=== PATIENT | female | born 1950 | race African-American/Black ===

== ENCOUNTER 2016-11-15 16:44 | Emergency (ER) | payer OTHER, MEDICAID ==
[~2016-11-15] VITALS: Ht 160 cm; Wt 96.6 kg
[~2016-11-15 16:44] MED LIST: ASPIR 8181 MG PO; ATENOLOL50 MG PO; COLACE100 MG PO; COR3 PO; COZAAR50 MG PO; CYCLOBENZAPRINE5 MG PO; ECO81 PO; ELA25 PO; ERY250 PO; FLUOXETINE HCL20 MG PO; FUROSEMIDE40 MG PO; GABAPENTIN TAB600 M1 PO; GAS-X80 MG PO; HYD25 PO; HYDROXYZINE HYD25 MG PO; L40I IV; L40I PO; LANTUS SOLOS100 U/M1; LANTUS SOLOS100 U/M1 SQ; LASIX20 MG PO; LEVEMIR100 U/M1 SQ; LEVOTHYROXINE0.1 M2 PO; METOCLOPRAMIDE10 MG PO; MIRALAX17 GM/Dose PO; NATURAL IRON65 MG PO; NEU100 PO; NEURONTIN600 MG PO; NOR5 PO; OMEPRAZOLE40 M1 PO; POTASSIUM CHLO10 MEQ PO; PRI20 PO; PRILOSEC20 MG PO; ROBDML PO; SIMVASTATIN40 M1 PO; THERAGRAN-M1 TA4 PO; TOR10 PO; TRAMADOL HCL50 MG PO; ULT50 PO; ZOF4 PO
[2016-11-15 19:05] LABS: BASOPHIL % 0.4 % (0-2); PLATELET COUNT 271 x10^3mcL (130-400); RED CELL DISTRIBUTION WIDTH 14.1 % (11.5-14.5)
[2016-11-15 19:23] LABS: CALCIUM 9.3 mg/dL (8.5-10.1); CARBON DIOXIDE 29.8 mmol/L (21-32); CREATININE SERUM 1.6 mg/dL (0.6-1.0); POTASSIUM SERUM 4.3 mmol/L (3.5-5.1)
[2016-11-15 19:35] LABS: ALBUMIN 3.4 g/dL (3.4-5.0); BILIRUBIN TOTAL 0.4 mg/dL (0.20-1.00); T4(THYROXINE) 7.8 ug/dL (4.7-13.3); TOTAL PROTEIN, SERUM 7.6 g/dL (6.4-8.2)
[2016-11-15 19:46] LABS: microscopic required? NO
[2016-11-15 19:59] LABS: UA SPECIFIC GRAVITY <=1.005 (1.005-1.035); urine erythrocyte NEGATIVE (NEGATIVE)
[2016-11-15 20:37] VITALS: BP 104/53
== END 2016-11-15 20:37 | disposition home or self-care (01) ==
LOC: ED 16:44
PROVIDERS: Emergency Medicine
DX: N39.0 Urinary tract infection, site not specified (principal); E11.22 Type 2 diabetes mellitus with diabetic chronic kidney disease; I12.9 Hypertensive chronic kidney disease with stage 1 through stage 4 chronic kidney disease, or unspecified chronic kidney disease; N18.3 Chronic kidney disease, stage 3 (moderate); E78.5 Hyperlipidemia, unspecified; E78.00 Pure hypercholesterolemia, unspecified; I44.0 Atrioventricular block, first degree; K21.9 Gastro-esophageal reflux disease without esophagitis; F17.200 Nicotine dependence, unspecified, uncomplicated; Q80.9 Congenital ichthyosis, unspecified; Z88.5 Allergy status to narcotic agent; Z71.6 Tobacco abuse counseling
CPT/HCPCS: 83880; 99406

== ENCOUNTER 2016-12-23 14:13 | Emergency (ER) | payer OTHER, MEDICAID ==
[2016-12-23 14:46] LABS: BILIRUBIN TOTAL 0.3 mg/dL (0.20-1.00); CARBON DIOXIDE 25.3 mmol/L (21-32); CREATININE SERUM 1.7 mg/dL (0.6-1.0); POTASSIUM SERUM 3.9 mmol/L (3.5-5.1); TOTAL PROTEIN, SERUM 7.6 g/dL (6.4-8.2)
[2016-12-23 14:47] LABS: ALBUMIN 3.2 g/dL (3.4-5.0)
[2016-12-23 14:50] LABS: CALCIUM 9.2 mg/dL (8.5-10.1)
[2016-12-23] MEDS ORDERED: COZAAR50 M1 PO (14:54)
[2016-12-23] MEDS ORDERED: PRAVASTATIN SOD40 M1 PO (14:55)
[2016-12-23] MEDS ORDERED: ASPIR 8181 MG PO (14:55)
[2016-12-23] MEDS ORDERED: GABAPENTIN100 M2 PO (14:57)
[2016-12-23] MEDS ORDERED: NOR5 PO (14:57)
[2016-12-23] MEDS ORDERED: CIPRO500 MG PO (14:57)
[2016-12-23] MEDS ORDERED: SYNTHROID0.112 MG PO (14:58)
[2016-12-23] MEDS ORDERED: ESCITALOPRAM10 M1 PO (15:00)
[2016-12-23 15:46] LABS: BASOPHIL % 0.3 % (0-2); PLATELET COUNT 309 x10^3mcL (130-400)
[2016-12-23 15:57] VITALS: BP 129/665
== END 2016-12-23 15:57 | disposition home or self-care (01) ==
LOC: ED 14:13
PROVIDERS: Emergency Medicine
DX: R10.13 Epigastric pain (principal); R11.2 Nausea with vomiting, unspecified; E03.9 Hypothyroidism, unspecified; I10 Essential (primary) hypertension; E11.9 Type 2 diabetes mellitus without complications; E78.5 Hyperlipidemia, unspecified; G47.00 Insomnia, unspecified; F32.9 Major depressive disorder, single episode, unspecified; E66.01 Morbid (severe) obesity due to excess calories; I73.9 Peripheral vascular disease, unspecified; E11.43 Type 2 diabetes mellitus with diabetic autonomic (poly)neuropathy; K31.84 Gastroparesis; Z88.5 Allergy status to narcotic agent
CPT/HCPCS: 82962; 83880; J1815; J2405; J3490; J7030

== ENCOUNTER 2017-02-09 16:56 | Inpatient (IN) | payer OTHER, MEDICAID ==
[~2017-02-09] VITALS: Ht 154.9 cm; Wt 105.8 kg
[~2017-02-09 16:56] MED LIST changes: +CIPRO500 MG PO; +COZAAR50 M1 PO; +ESCITALOPRAM10 M1 PO; +GABAPENTIN100 M2 PO; +PRAVASTATIN SOD40 M1 PO; +SYNTHROID0.112 MG PO
[2017-02-09 19:48] LABS: BASOPHIL % 0.4 % (0-2); PLATELET COUNT 265 x10^3mcL (130-400); RED CELL DISTRIBUTION WIDTH 12.1 % (11.5-14.5)
[2017-02-09 19:54] LABS: CALCIUM 9.2 mg/dL (8.5-10.1); CARBON DIOXIDE 28.3 mmol/L (21-32); CREATININE SERUM 1.7 mg/dL (0.6-1.0)
[2017-02-09 19:59] LABS: BILIRUBIN TOTAL 0.36 mg/dL (0.20-1.00); TOTAL PROTEIN, SERUM 7.8 g/dL (6.4-8.2)
[2017-02-09 20:00] LABS: ALBUMIN 3.2 g/dL (3.4-5.0)
[2017-02-09 20:26] LABS: microscopic required? NO
[2017-02-09 20:34] LABS: UA SPECIFIC GRAVITY <=1.005 (1.005-1.035); urine erythrocyte NEGATIVE (NEGATIVE)
[2017-02-09 20:42] LABS: AMPHETAMINE QUAL UR NONE DETECTED (NEG <=1000)
[2017-02-09 20:55] LABS: CHOLESTEROL/HDL RATIO 4.2; MAGNESIUM 1.8 mg/dL (1.8-2.4); PHOSPHOROUS 2.9 mg/dL (2.5-4.9)
[2017-02-09 21:03] LABS: FREE THYROXINE INDEX 2.2 ug/dL (1.4-4.5); T3 TOTAL 0.52 ng/mL; T4(THYROXINE) 6.4 ug/dL (4.7-13.3)
[2017-02-09 21:10] VITALS: BP 125/65
[2017-02-10 05:55] VITALS: BP 147/72
[2017-02-10 06:47] LABS: BASOPHIL % 0.5 % (0-2); PLATELET COUNT 235 x10^3mcL (130-400); RED CELL DISTRIBUTION WIDTH 12.2 % (11.5-14.5)
[2017-02-10 07:02] LABS: CALCIUM 8.2 mg/dL (8.5-10.1); CARBON DIOXIDE 26.3 mmol/L (21-32); CREATININE SERUM 1.7 mg/dL (0.6-1.0); POTASSIUM SERUM 3.5 mmol/L (3.5-5.1)
[2017-02-10 09:34] VITALS: BP 106/52
[2017-02-10 13:22] VITALS: BP 116/63
[2017-02-10 14:13] VITALS: Ht 154.9 cm; Wt 105.8 kg
[2017-02-10 17:25] VITALS: BP 115/68
[2017-02-10 21:33] VITALS: BP 122/80
[2017-02-11 06:39] LABS: CALCIUM 8.4 mg/dL (8.5-10.1); CREATININE SERUM 1.3 mg/dL (0.6-1.0); MAGNESIUM 1.9 mg/dL (1.8-2.4); PHOSPHOROUS 3.1 mg/dL (2.5-4.9); POTASSIUM SERUM 3.7 mmol/L (3.5-5.1)
[2017-02-11 06:48] LABS: BASOPHIL % 0.3 % (0-2); PLATELET COUNT 241 x10^3mcL (130-400); RED CELL DISTRIBUTION WIDTH 12.5 % (11.5-14.5)
[2017-02-11 06:58] VITALS: BP 114/57
[2017-02-11 09:31] VITALS: BP 136/69
[2017-02-11] MEDS ORDERED: COL100 PO (10:23)
[2017-02-11] MEDS ORDERED: TOR10 PO (10:24)
[2017-02-11 12:22] VITALS: BP 136/69
== END 2017-02-11 13:00 | disposition home or self-care (01) | DRG 542 ==
LOC: ED 16:56 → DU 20:04
PROVIDERS: Emergency Medicine; ADMIT Family Medicine
DX: M48.56XA Collapsed vertebra, not elsewhere classified, lumbar region, initial encounter for fracture (principal); N17.0 Acute kidney failure with tubular necrosis; E44.1 Mild protein-calorie malnutrition; Z68.41 Body mass index [BMI] 40.0-44.9, adult; M48.06 Spinal stenosis, lumbar region; I25.10 Atherosclerotic heart disease of native coronary artery without angina pectoris; M25.812 Other specified joint disorders, left shoulder; M25.811 Other specified joint disorders, right shoulder; E11.65 Type 2 diabetes mellitus with hyperglycemia; E11.51 Type 2 diabetes mellitus with diabetic peripheral angiopathy without gangrene; E03.9 Hypothyroidism, unspecified; N87.1 Moderate cervical dysplasia; E66.01 Morbid (severe) obesity due to excess calories; F17.200 Nicotine dependence, unspecified, uncomplicated; Z79.4 Long term (current) use of insulin
CPT/HCPCS: 82962; 83880; 84439; J1815; J1885; J2270; J2405; J3010; J7030

== ENCOUNTER 2017-04-29 12:22 | Emergency (ER) | payer OTHER, MEDICAID ==
[~2017-04-29] VITALS: Ht 160 cm; Wt 99.8 kg
[~2017-04-29 12:22] MED LIST changes: +COL100 PO
[2017-04-29 17:53] VITALS: BP 109/68
== END 2017-04-29 17:40 | disposition home or self-care (01) ==
LOC: ED 12:22
DX: R11.2 Nausea with vomiting, unspecified (principal); R10.13 Epigastric pain; K21.9 Gastro-esophageal reflux disease without esophagitis; E11.43 Type 2 diabetes mellitus with diabetic autonomic (poly)neuropathy; K31.84 Gastroparesis; E11.51 Type 2 diabetes mellitus with diabetic peripheral angiopathy without gangrene; E11.40 Type 2 diabetes mellitus with diabetic neuropathy, unspecified; I10 Essential (primary) hypertension; E03.9 Hypothyroidism, unspecified; E66.9 Obesity, unspecified; Z90.710 Acquired absence of both cervix and uterus; Z88.6 Allergy status to analgesic agent
CPT/HCPCS: J1885; J2270; Q0162

== ENCOUNTER 2017-08-02 19:04 | Emergency (ER) | payer OTHER, MEDICAID ==
[~2017-08-02] VITALS: Ht 162.6 cm; Wt 96.2 kg
[2017-08-02 19:41] VITALS: Ht 162.6 cm; Wt 96.2 kg
[2017-08-02 22:53] LABS: BASOPHIL % 0.5 % (0-2); PLATELET COUNT 320 x10^3mcL (130-400); RED CELL DISTRIBUTION WIDTH 12.6 % (11.5-14.5)
[2017-08-02 23:09] LABS: CALCIUM 9.9 mg/dL (8.5-10.1); CARBON DIOXIDE 28.4 mmol/L (21-32); CREATININE SERUM 1.7 mg/dL (0.6-1.0); POTASSIUM SERUM 3.6 mmol/L (3.5-5.1)
[2017-08-02 23:13] LABS: ALBUMIN 3.4 g/dL (3.4-5.0); BILIRUBIN TOTAL 0.35 mg/dL (0.20-1.00); TOTAL PROTEIN, SERUM 8.1 g/dL (6.4-8.2)
[2017-08-03 01:57] VITALS: BP 123/74
== END 2017-08-03 01:57 | disposition home or self-care (01) ==
LOC: ED 19:04
PROVIDERS: Specialist
DX: R11.10 Vomiting, unspecified (principal); R19.7 Diarrhea, unspecified; M79.1 Myalgia; I10 Essential (primary) hypertension; E11.9 Type 2 diabetes mellitus without complications; E78.00 Pure hypercholesterolemia, unspecified; M19.90 Unspecified osteoarthritis, unspecified site; Z88.5 Allergy status to narcotic agent
CPT/HCPCS: 87804; J1170; J1885; J2405; J3010; J7030

== ENCOUNTER 2018-01-02 10:28 | Inpatient (IN) | payer OTHER, MEDICAID ==
[~2018-01-02] VITALS: Ht 154.9 cm; Wt 100.9 kg
[2018-01-02 11:28] LABS: PLATELET COUNT 314 x10^3mcL (130-400); RED CELL DISTRIBUTION WIDTH 12.1 % (11.5-14.5)
[2018-01-02 11:36] LABS: CALCIUM 8.9 mg/dL (8.5-10.1); CARBON DIOXIDE 26.8 mmol/L (21-32); CREATININE SERUM 2.5 mg/dL (0.6-1.0); POTASSIUM SERUM 3.8 mmol/L (3.5-5.1)
[2018-01-02 11:47] LABS: BILIRUBIN TOTAL 0.5 mg/dL (0.20-1.00); TOTAL PROTEIN, SERUM 7.8 g/dL (6.4-8.2)
[2018-01-02 11:51] LABS: FREE T4 0.73 ng/dL (0.76-1.46)
[2018-01-02 11:53] LABS: CK-MB 0.8 ng/mL (0-3.6)
[2018-01-02 11:59] LABS: ALBUMIN 2.6 g/dL (3.4-5.0); FREE THYROXINE INDEX 1.4 ug/dL (1.4-4.5); T3 TOTAL 0.28 ng/mL; T4(THYROXINE) 4.3 ug/dL (4.7-13.3)
[2018-01-02 13:10] LABS: BAND NEUTROPHIL 1 % (0-10); MONOCYTE 3 % (0-7); SEGMENTED NEUTROPHILS 88 % (37-75)
[2018-01-02 13:11] LABS: BASOPHIL 0 % (0-2); rbc morphology (normal/abnorm) ABNORMAL (NORMAL)
[2018-01-02 13:12] VITALS: BP 112/56
[2018-01-02 13:20] LABS: C REACTIVE PROTEIN 32.1 mg/dL (<=0.9); ERYTHROCYTE SED RATE 101 mm/hr (0-30)
[2018-01-02 13:42] LABS: MAGNESIUM 2.2 mg/dL (1.8-2.4); PHOSPHOROUS 3.3 mg/dL (2.5-4.9)
[2018-01-02 13:51] LABS: CHOLESTEROL/HDL RATIO 5.7
[2018-01-02] MEDS ORDERED: LEVEMIR100 U/M1 SC (14:56)
[2018-01-02 15:15] VITALS: BP 92/48
[2018-01-02 20:01] VITALS: BP 119/60
[2018-01-02 20:06] LABS: microscopic required? NO
[2018-01-02 20:09] LABS: urine erythrocyte NEGATIVE (NEGATIVE)
[2018-01-03 05:29] VITALS: BP 107/63
[2018-01-03 06:25] LABS: RED CELL DISTRIBUTION WIDTH 12.2 % (11.5-14.5)
[2018-01-03 06:30] LABS: CARBON DIOXIDE 23.1 mmol/L (21-32); CREATININE SERUM 2.9 mg/dL (0.6-1.0); POTASSIUM SERUM 3.9 mmol/L (3.5-5.1)
[2018-01-03 06:31] LABS: PLATELET COUNT 272 x10^3mcL (130-400)
[2018-01-03 08:35] VITALS: BP 99/43
[2018-01-03 12:12] LABS: BAND NEUTROPHIL 8 % (0-10); MONOCYTE 9 % (0-7); SEGMENTED NEUTROPHILS 75 % (37-75)
[2018-01-03 12:13] LABS: PLATELET MORPHOLOGY PLATELETS NORMAL; rbc morphology (normal/abnorm) ABNORMAL (NORMAL)
[2018-01-03 14:44] VITALS: BP 90/50
[2018-01-03] MEDS ORDERED: NATURAL IRON65 MG PO (16:19)
[2018-01-03] MEDS ORDERED: MAGOX 400241.3 MG PO (16:20)
[2018-01-03] MEDS ORDERED: ALERCAP25 MG PO (16:21)
[2018-01-03] MEDS ORDERED: HYDROCHLOROTHIA25 MG PO (16:23)
[2018-01-03] MEDS ORDERED: PROCTOSOL-HC2.5% (16:25)
[2018-01-03] MEDS ORDERED: LAXATIVE MAXIMU25 MG PO (16:26)
[2018-01-03] MEDS ORDERED: NEURONTIN800 MG PO (16:27)
[2018-01-03] MEDS ORDERED: LASIX20 MG PO (16:29)
[2018-01-03 16:40] VITALS: BP 100/48
[2018-01-03 19:03] VITALS: BP 92/51
[2018-01-03 20:52] VITALS: BP 114/54
[2018-01-04 06:05] VITALS: BP 123/68
[2018-01-04 09:05] VITALS: BP 102/6; BP 102/60
[2018-01-04 09:27] LABS: PLATELET COUNT 295 x10^3mcL (130-400); RED CELL DISTRIBUTION WIDTH 12.3 % (11.5-14.5)
[2018-01-04 10:23] LABS: BAND NEUTROPHIL 11 % (0-10); BASOPHIL 0 % (0-2); MONOCYTE 7 % (0-7); SEGMENTED NEUTROPHILS 73 % (37-75)
[2018-01-04 10:25] LABS: rbc morphology (normal/abnorm) ABNORMAL (NORMAL)
[2018-01-04 10:42] LABS: CALCIUM 8.1 mg/dL (8.5-10.1); CARBON DIOXIDE 20.8 mmol/L (21-32); CREATININE SERUM 2.1 mg/dL (0.6-1.0); MAGNESIUM 2.1 mg/dL (1.8-2.4); PHOSPHOROUS 3.4 mg/dL (2.5-4.9); POTASSIUM SERUM 3.9 mmol/L (3.5-5.1)
[2018-01-04 13:35] VITALS: BP 98/51
[2018-01-04 16:40] VITALS: BP 118/60
[2018-01-04 21:59] VITALS: BP 109/54
[2018-01-05 05:54] VITALS: BP 113/51
[2018-01-05 06:01] LABS: BASOPHIL % 0.1 % (0-2); PLATELET COUNT 317 x10^3mcL (130-400); RED CELL DISTRIBUTION WIDTH 12.4 % (11.5-14.5)
[2018-01-05 06:16] LABS: CALCIUM 8.5 mg/dL (8.5-10.1); CARBON DIOXIDE 24.2 mmol/L (21-32); CREATININE SERUM 1.6 mg/dL (0.6-1.0); MAGNESIUM 2.1 mg/dL (1.8-2.4); PHOSPHOROUS 2.8 mg/dL (2.5-4.9); POTASSIUM SERUM 3.8 mmol/L (3.5-5.1)
[2018-01-05 12:45] VITALS: BP 132/59
[2018-01-05 16:36] LABS: IRON 30 ug/dL (50-170); TOTAL IRON BINDING CAPACITY 137 ug/dL (250-450)
[2018-01-05 21:04] VITALS: BP 151/68
[2018-01-06 05:17] VITALS: BP 142/61
[2018-01-06 06:29] LABS: BASOPHIL % 0.2 % (0-2); PLATELET COUNT 362 x10^3mcL (130-400); RED CELL DISTRIBUTION WIDTH 12.4 % (11.5-14.5)
[2018-01-06 07:07] LABS: CALCIUM 8.8 mg/dL (8.5-10.1); CARBON DIOXIDE 24.6 mmol/L (21-32); CREATININE SERUM 1.3 mg/dL (0.6-1.0); MAGNESIUM 1.8 mg/dL (1.8-2.4); PHOSPHOROUS 3.2 mg/dL (2.5-4.9); POTASSIUM SERUM 4.2 mmol/L (3.5-5.1)
[2018-01-06 09:29] VITALS: BP 126/62
[2018-01-06 13:49] VITALS: BP 155/69
[2018-01-06 21:19] VITALS: BP 150/69
[2018-01-07 05:53] VITALS: BP 146/64
[2018-01-07 06:09] LABS: BASOPHIL % 0.2 % (0-2); PLATELET COUNT 395 x10^3mcL (130-400); RED CELL DISTRIBUTION WIDTH 12.1 % (11.5-14.5)
[2018-01-07 06:25] LABS: CALCIUM 9.1 mg/dL (8.5-10.1); CARBON DIOXIDE 25.2 mmol/L (21-32); CREATININE SERUM 1.2 mg/dL (0.6-1.0); MAGNESIUM 1.8 mg/dL (1.8-2.4); PHOSPHOROUS 3.6 mg/dL (2.5-4.9); POTASSIUM SERUM 3.9 mmol/L (3.5-5.1)
[2018-01-07 09:23] VITALS: BP 144/51
[2018-01-07 14:04] VITALS: BP 149/66
[2018-01-07 16:35] VITALS: BP 145/53
[2018-01-07 21:45] VITALS: BP 131/69
[2018-01-08 06:23] VITALS: BP 122/68
[2018-01-08 07:45] LABS: BASOPHIL % 0.1 % (0-2); RED CELL DISTRIBUTION WIDTH 12.3 % (11.5-14.5)
[2018-01-08 07:46] LABS: PLATELET COUNT 401 x10^3mcL (130-400)
[2018-01-08 08:02] LABS: CALCIUM 8.8 mg/dL (8.5-10.1); CARBON DIOXIDE 27.6 mmol/L (21-32); CREATININE SERUM 1.2 mg/dL (0.6-1.0); POTASSIUM SERUM 3.9 mmol/L (3.5-5.1)
[2018-01-08 08:07] LABS: ALBUMIN 2.3 g/dL (3.4-5.0); BILIRUBIN TOTAL 0.21 mg/dL (0.20-1.00); TOTAL PROTEIN, SERUM 6.5 g/dL (6.4-8.2)
[2018-01-08 10:20] VITALS: BP 128/79
[2018-01-08 13:02] VITALS: BP 105/47
[2018-01-08 17:55] VITALS: BP 104/59
[2018-01-08 22:10] VITALS: BP 119/51
[2018-01-09 06:04] VITALS: BP 128/60
[2018-01-09 07:00] LABS: CALCIUM 8.9 mg/dL (8.5-10.1); CARBON DIOXIDE 25.4 mmol/L (21-32); CREATININE SERUM 1.6 mg/dL (0.6-1.0); MAGNESIUM 1.8 mg/dL (1.8-2.4); POTASSIUM SERUM 4.3 mmol/L (3.5-5.1)
[2018-01-09 07:13] LABS: BASOPHIL % 0.5 % (0-2); RED CELL DISTRIBUTION WIDTH 12.4 % (11.5-14.5)
[2018-01-09 07:36] LABS: PLATELET COUNT 414 x10^3mcL (130-400)
[2018-01-09 09:05] VITALS: BP 124/56
[2018-01-09 12:28] VITALS: BP 106/43
[2018-01-09 16:57] VITALS: BP 104/45
[2018-01-09 21:06] VITALS: BP 125/78
[2018-01-10 05:40] VITALS: BP 118/63
[2018-01-10 06:50] LABS: BASOPHIL % 0.3 % (0-2); PLATELET COUNT 382 x10^3mcL (130-400); RED CELL DISTRIBUTION WIDTH 12.7 % (11.5-14.5)
[2018-01-10 07:07] LABS: CALCIUM 8.7 mg/dL (8.5-10.1); CARBON DIOXIDE 28.1 mmol/L (21-32); CREATININE SERUM 1.6 mg/dL (0.6-1.0); PHOSPHOROUS 3.1 mg/dL (2.5-4.9); POTASSIUM SERUM 4.1 mmol/L (3.5-5.1)
[2018-01-10 08:59] VITALS: BP 142/62
[2018-01-10 13:30] VITALS: BP 119/64
[2018-01-10 17:07] VITALS: BP 125/65
[2018-01-10 21:07] VITALS: BP 136/61
[2018-01-11 05:29] VITALS: BP 154/64
[2018-01-11 06:16] LABS: CALCIUM 8.8 mg/dL (8.5-10.1); CARBON DIOXIDE 28.2 mmol/L (21-32); CREATININE SERUM 1.2 mg/dL (0.6-1.0); MAGNESIUM 1.9 mg/dL (1.8-2.4); PHOSPHOROUS 2.8 mg/dL (2.5-4.9); POTASSIUM SERUM 3.9 mmol/L (3.5-5.1)
[2018-01-11 06:45] LABS: BASOPHIL % 0.2 % (0-2); PLATELET COUNT 377 x10^3mcL (130-400); RED CELL DISTRIBUTION WIDTH 12.5 % (11.5-14.5)
[2018-01-11 09:00] VITALS: BP 139/67
[2018-01-11 12:51] VITALS: BP 146/62
[2018-01-11] MEDS ORDERED: AUG500 PO (16:55)
[2018-01-11] MEDS ORDERED: BD LACTINEX1.4 MG PO (16:55)
[2018-01-11 17:12] VITALS: BP 133/61
[2018-01-11 17:25] VITALS: BP 133/61
== END 2018-01-11 19:38 | disposition home health service (06) | DRG 584 ==
LOC: ED 10:28 → DU 11:09
PROVIDERS: Anesthesiology; Family Medicine; Specialist; Surgery
PROC: 0HBT0ZZ Excision of Right Breast, Open Approach (ICD-10-PCS; principal; 2018-01-03 08:30)
PROC: 0HBT0ZZ Excision of Right Breast, Open Approach (ICD-10-PCS; 2018-01-08)
DX: N61.1 Abscess of the breast and nipple (principal); N17.0 Acute kidney failure with tubular necrosis; E43 Unspecified severe protein-calorie malnutrition; Z68.41 Body mass index [BMI] 40.0-44.9, adult; E87.1 Hypo-osmolality and hyponatremia; E11.9 Type 2 diabetes mellitus without complications; I10 Essential (primary) hypertension; M19.90 Unspecified osteoarthritis, unspecified site; K21.9 Gastro-esophageal reflux disease without esophagitis; F32.9 Major depressive disorder, single episode, unspecified; D64.9 Anemia, unspecified; E03.9 Hypothyroidism, unspecified; E78.00 Pure hypercholesterolemia, unspecified; E87.8 Other disorders of electrolyte and fluid balance, not elsewhere classified; E66.01 Morbid (severe) obesity due to excess calories
CPT/HCPCS: 36600; 76641; 82962; 83880; 84439; 94150; J0690; J1644; J1815; J1885; J2250; J2270; J2405; J2543; J2704; J3010; J3490; J7030; J7042; Q0092

== ENCOUNTER 2018-07-27 17:14 | Inpatient (IN) | payer OTHER, BC ==
[~2018-07-27] VITALS: Ht 160 cm; Wt 104.3 kg
[~2018-07-27 17:14] MED LIST changes: +ALERCAP25 MG PO; +AUG500 PO; +BD LACTINEX1.4 MG PO; +HYDROCHLOROTHIA25 MG PO; +LAXATIVE MAXIMU25 MG PO; +LEVEMIR100 U/M1 SC; +MAGOX 400241.3 MG PO; +NEURONTIN800 MG PO; +PRILOSEC OTC20 M1 PO; -PRILOSEC20 MG PO; +PROCTOSOL-HC2.5%
[2018-07-27 18:43] LABS: BASOPHIL % 0.5 % (0-2); PLATELET COUNT 320 x10^3mcL (130-400); RED CELL DISTRIBUTION WIDTH 13.4 % (11.5-14.5)
[2018-07-27 19:05] LABS: CALCIUM 9.6 mg/dL (8.5-10.1); CARBON DIOXIDE 29.9 mmol/L (21-32); CHLORIDE SERUM 96 mmol/L (98-107); CREATININE SERUM 1.6 mg/dL (0.6-1.0); GFR1 34 mL/min; GLUCOSE SERUM 180 mg/dL (74-106); POTASSIUM SERUM 3.2 mmol/L (3.5-5.1); SODIUM SERUM 137 mmol/L (136-145)
[2018-07-27 19:09] LABS: ALBUMIN 3.6 g/dL (3.4-5.0); ALKALINE PHOSPHATASE 94 U/L (46-116); ALT/SGPT 20 U/L (14-59); AST/SGOT 18 U/L (15-37); BILIRUBIN TOTAL 0.41 mg/dL (0.20-1.00); C REACTIVE PROTEIN 2.7 mg/dL (<=0.9)
[2018-07-27 19:12] LABS: T3 TOTAL 0.84 ng/mL
[2018-07-27 19:13] LABS: TOTAL PROTEIN, SERUM 9.1 g/dL (6.4-8.2)
[2018-07-27 19:27] LABS: CK-MB 2.1 ng/mL (0-3.6)
[2018-07-27 19:28] LABS: microscopic required? NO
[2018-07-27 19:33] LABS: FREE T4 1.24 ng/dL (0.76-1.46); FREE THYROXINE INDEX 3.5 ug/dL (1.4-4.5); T4(THYROXINE) 9.4 ug/dL (4.7-13.3)
[2018-07-27 19:44] LABS: urine erythrocyte NEGATIVE (NEGATIVE)
[2018-07-27 20:02] LABS: ERYTHROCYTE SED RATE 60 mm/hr (0-30)
[2018-07-28 05:17] LABS: MAGNESIUM 2.3 mg/dL (1.8-2.4); PHOSPHOROUS 2.7 mg/dL (2.5-4.9)
[2018-07-28 05:21] LABS: CHOLESTEROL/HDL RATIO 4.8
[2018-07-28 06:52] VITALS: BP 121/53
[2018-07-28 07:45] VITALS: BP 121/53
[2018-07-28 08:40] VITALS: BP 150/75
[2018-07-28 17:17] VITALS: BP 130/64
[2018-07-28 20:59] VITALS: BP 127/63
[2018-07-29 05:32] VITALS: BP 123/62
[2018-07-29 06:38] LABS: CALCIUM 8.8 mg/dL (8.5-10.1); CARBON DIOXIDE 31.6 mmol/L (21-32); CREATININE SERUM 1.7 mg/dL (0.6-1.0); MAGNESIUM 2.4 mg/dL (1.8-2.4); PHOSPHOROUS 3.1 mg/dL (2.5-4.9); POTASSIUM SERUM 4.1 mmol/L (3.5-5.1)
[2018-07-29 07:00] LABS: BASOPHIL % 0.5 % (0-2); PLATELET COUNT 294 x10^3mcL (130-400); RED CELL DISTRIBUTION WIDTH 13.5 % (11.5-14.5)
[2018-07-29 10:00] VITALS: BP 114/53
[2018-07-29 13:10] VITALS: Ht 160 cm; Wt 104.3 kg
[2018-07-29 17:10] VITALS: BP 125/53
[2018-07-29 21:00] VITALS: BP 123/50
[2018-07-30 06:25] VITALS: BP 129/56
[2018-07-30 06:33] LABS: BASOPHIL % 0.3 % (0-2); PLATELET COUNT 290 x10^3mcL (130-400); RED CELL DISTRIBUTION WIDTH 13.6 % (11.5-14.5)
[2018-07-30 06:49] LABS: CALCIUM 8.8 mg/dL (8.5-10.1); CREATININE SERUM 1.5 mg/dL (0.6-1.0); MAGNESIUM 2.1 mg/dL (1.8-2.4); PHOSPHOROUS 3.7 mg/dL (2.5-4.9); POTASSIUM SERUM 3.6 mmol/L (3.5-5.1)
[2018-07-30] MEDS ORDERED: LAXATIVE MAXIMU25 MG PO (12:16)
[2018-07-30] MEDS ORDERED: MIRALAX17 GM/Dose PO (12:17)
[2018-07-30 13:02] VITALS: BP 130/61
[2018-07-30 15:20] VITALS: BP 130/61
== END 2018-07-30 16:22 | disposition home or self-care (01) | DRG 391 ==
LOC: ED 17:14 → MU 07-28 04:48 → ED 07-28 06:06 → MU 07-28 06:16
PROVIDERS: Specialist; ADMIT Family Medicine
DX: K59.00 Constipation, unspecified (principal); N17.0 Acute kidney failure with tubular necrosis; Z68.41 Body mass index [BMI] 40.0-44.9, adult; D68.69 Other thrombophilia; E11.65 Type 2 diabetes mellitus with hyperglycemia; E86.0 Dehydration; E87.6 Hypokalemia; F32.9 Major depressive disorder, single episode, unspecified; K21.9 Gastro-esophageal reflux disease without esophagitis; I10 Essential (primary) hypertension; F12.10 Cannabis abuse, uncomplicated; Z79.4 Long term (current) use of insulin; F17.210 Nicotine dependence, cigarettes, uncomplicated
CPT/HCPCS: 36600; 82962; 84439; J1200; J1885; J2270; J2405; J7030

== ENCOUNTER 2018-09-06 18:42 | Emergency (ER) | payer OTHER, BC ==
[~2018-09-06] VITALS: Ht 167.6 cm; Wt 103.9 kg
[2018-09-06 19:00] VITALS: Ht 167.6 cm; Wt 103.9 kg
[2018-09-06 20:34] LABS: BASOPHIL % 0.1 % (0-2); PLATELET COUNT 322 x10^3mcL (130-400); RED CELL DISTRIBUTION WIDTH 13.1 % (11.5-14.5)
[2018-09-06 20:49] LABS: ALBUMIN 3.6 g/dL (3.4-5.0); BILIRUBIN TOTAL 0.36 mg/dL (0.20-1.00); CALCIUM 9.8 mg/dL (8.5-10.1); CARBON DIOXIDE 31.1 mmol/L (21-32); CREATININE SERUM 1.6 mg/dL (0.6-1.0)
[2018-09-06 20:51] LABS: POTASSIUM SERUM 2.8 mmol/L (3.5-5.1); TOTAL PROTEIN, SERUM 8.6 g/dL (6.4-8.2)
[2018-09-06 23:10] VITALS: BP 125/69
== END 2018-09-06 23:10 | disposition home or self-care (01) ==
LOC: ED 18:42
PROVIDERS: Emergency Medicine
DX: R10.9 Unspecified abdominal pain (principal); R11.2 Nausea with vomiting, unspecified; R19.7 Diarrhea, unspecified; E11.9 Type 2 diabetes mellitus without complications; Z90.710 Acquired absence of both cervix and uterus; Z98.890 Other specified postprocedural states; Z88.5 Allergy status to narcotic agent
CPT/HCPCS: J2270; J2405; J7030

== ENCOUNTER 2018-10-30 15:06 | Emergency (ER) | payer OTHER, BC ==
[~2018-10-30] VITALS: Ht 160 cm; Wt 99.8 kg
[2018-10-30 15:18] VITALS: Ht 160 cm; Wt 99.8 kg
[2018-10-30 16:25] LABS: BASOPHIL % 0 % (0-2); PLATELET COUNT 329 x10^3mcL (130-400); RED CELL DISTRIBUTION WIDTH 13.5 % (11.5-14.5)
[2018-10-30 16:39] LABS: CALCIUM 9.2 mg/dL (8.5-10.1); CARBON DIOXIDE 27.6 mmol/L (21-32); CREATININE SERUM 1.3 mg/dL (0.6-1.0); POTASSIUM SERUM 3.8 mmol/L (3.5-5.1)
[2018-10-30 16:43] LABS: ALBUMIN 3.6 g/dL (3.4-5.0); BILIRUBIN TOTAL 0.38 mg/dL (0.20-1.00)
[2018-10-30 16:44] LABS: TOTAL PROTEIN, SERUM 8.7 g/dL (6.4-8.2)
[2018-10-30 18:48] LABS: UA SPECIFIC GRAVITY 1.015 (1.005-1.035); microscopic required? YES; urine erythrocyte NEGATIVE (NEGATIVE)
[2018-10-30 20:23] VITALS: BP 148/73
== END 2018-10-30 20:23 | disposition home or self-care (01) ==
LOC: ED 15:06
PROVIDERS: Emergency Medicine
DX: R11.10 Vomiting, unspecified (principal); R19.7 Diarrhea, unspecified; R10.9 Unspecified abdominal pain; R42 Dizziness and giddiness; R06.02 Shortness of breath; I10 Essential (primary) hypertension; K21.9 Gastro-esophageal reflux disease without esophagitis; F41.9 Anxiety disorder, unspecified; F32.9 Major depressive disorder, single episode, unspecified; E03.9 Hypothyroidism, unspecified; E66.01 Morbid (severe) obesity due to excess calories; E11.40 Type 2 diabetes mellitus with diabetic neuropathy, unspecified; Z88.5 Allergy status to narcotic agent; Z86.2 Personal history of diseases of the blood and blood-forming organs and certain disorders involving the immune mechanism
CPT/HCPCS: 36415; J2405; J2765; J3490; Q0092

== ENCOUNTER 2019-11-26 18:02 | Emergency (ER) | payer OTHER, BC ==
[~2019-11-26] VITALS: Ht 160 cm; Wt 101.2 kg
[2019-11-26 18:19] VITALS: Ht 160 cm; Wt 101.2 kg
[2019-11-26 19:19] LABS: BASOPHIL % 0.8 % (0-2); PLATELET COUNT 303 x10^3mcL (130-400); RED CELL DISTRIBUTION WIDTH 12.8 % (11.5-14.5)
[2019-11-26 19:30] LABS: CALCIUM 9.2 mg/dL (8.5-10.1); CARBON DIOXIDE 26.4 mmol/L (21-32); CREATININE SERUM 1.6 mg/dL (0.6-1.0); POTASSIUM SERUM 3.8 mmol/L (3.5-5.1)
[2019-11-26 19:35] LABS: ALBUMIN 3.5 g/dL (3.4-5.0); BILIRUBIN TOTAL 0.32 mg/dL (0.20-1.00); TOTAL PROTEIN, SERUM 7.7 g/dL (6.4-8.2)
[2019-11-26 20:53] VITALS: BP 95/42
== END 2019-11-26 20:53 | disposition home or self-care (01) ==
LOC: ED 18:02
PROVIDERS: Emergency Medicine
DX: R10.31 Right lower quadrant pain (principal); G89.29 Other chronic pain; R11.2 Nausea with vomiting, unspecified; K59.00 Constipation, unspecified; I10 Essential (primary) hypertension; E78.00 Pure hypercholesterolemia, unspecified; K21.9 Gastro-esophageal reflux disease without esophagitis; E03.9 Hypothyroidism, unspecified; E11.40 Type 2 diabetes mellitus with diabetic neuropathy, unspecified
CPT/HCPCS: J2270; J2405; J7030

== ENCOUNTER 2019-12-17 15:22 | Emergency (ER) | payer OTHER, BC ==
[~2019-12-17] VITALS: Ht 160 cm; Wt 96.6 kg
[2019-12-17 15:33] VITALS: Ht 160 cm; Wt 96.6 kg
[2019-12-17 16:18] LABS: BASOPHIL % 0.6 % (0-2); RED CELL DISTRIBUTION WIDTH 13.3 % (11.5-14.5)
[2019-12-17 16:19] LABS: CALCIUM 10.3 mg/dL (8.5-10.1); CREATININE SERUM 1.8 mg/dL (0.6-1.0); POTASSIUM SERUM 3.3 mmol/L (3.5-5.1)
[2019-12-17 16:20] LABS: PLATELET COUNT 408 x10^3mcL (130-400)
[2019-12-17 16:24] LABS: ALBUMIN 4.2 g/dL (3.4-5.0); BILIRUBIN TOTAL 0.4 mg/dL (0.20-1.00)
[2019-12-17 16:27] LABS: TOTAL PROTEIN, SERUM 8.5 g/dL (6.4-8.2)
[2019-12-17 17:26] LABS: microscopic required? YES; urine erythrocyte NEGATIVE (NEGATIVE)
[2019-12-17 18:56] VITALS: BP 159/71
== END 2019-12-17 18:56 | disposition home or self-care (01) ==
LOC: ED 15:22
PROVIDERS: Emergency Medicine
DX: K80.20 Calculus of gallbladder without cholecystitis without obstruction (principal); I10 Essential (primary) hypertension; E11.9 Type 2 diabetes mellitus without complications; E03.9 Hypothyroidism, unspecified; K21.9 Gastro-esophageal reflux disease without esophagitis; Z86.2 Personal history of diseases of the blood and blood-forming organs and certain disorders involving the immune mechanism; Z85.3 Personal history of malignant neoplasm of breast; Z88.5 Allergy status to narcotic agent
CPT/HCPCS: J2001; J2270; J2405; J3490; J7030; Q0092

== ENCOUNTER 2020-03-04 15:06 | Emergency (ER) | payer OTHER, BC ==
[~2020-03-04] VITALS: Ht 172.7 cm; Wt 120.7 kg
[2020-03-04 16:12] VITALS: Ht 172.7 cm; Wt 120.7 kg
[2020-03-04 18:00] LABS: BASOPHIL % 0.5 % (0-2); PLATELET COUNT 343 x10^3mcL (130-400); RED CELL DISTRIBUTION WIDTH 13.1 % (11.5-14.5)
[2020-03-04 19:06] LABS: CALCIUM 9.7 mg/dL (8.5-10.1); CARBON DIOXIDE 35.6 mmol/L (21-32); CREATININE SERUM 1.4 mg/dL (0.6-1.0); POTASSIUM SERUM 4.3 mmol/L (3.5-5.1)
[2020-03-04 19:09] LABS: ALBUMIN 3.6 g/dL (3.4-5.0); BILIRUBIN TOTAL 0.3 mg/dL (0.20-1.00)
[2020-03-04 19:10] LABS: TOTAL PROTEIN, SERUM 8.4 g/dL (6.4-8.2)
[2020-03-04 23:26] VITALS: BP 111/73
== END 2020-03-04 23:26 | disposition home or self-care (01) ==
LOC: ED 15:06
PROVIDERS: Emergency Medicine
DX: R10.11 Right upper quadrant pain (principal); R11.0 Nausea; I10 Essential (primary) hypertension; K21.9 Gastro-esophageal reflux disease without esophagitis; E03.9 Hypothyroidism, unspecified; E11.40 Type 2 diabetes mellitus with diabetic neuropathy, unspecified; Z85.3 Personal history of malignant neoplasm of breast
CPT/HCPCS: J2270; J2405; J7030; Q9967

== ENCOUNTER 2020-04-16 13:53 | Emergency (ER) | payer OTHER, BC ==
[2020-04-16 15:04] LABS: BASOPHIL % 0.8 % (0-2); PLATELET COUNT 353 x10^3mcL (130-400); RED CELL DISTRIBUTION WIDTH 12.4 % (11.5-14.5)
[2020-04-16 15:09] LABS: CALCIUM 9.8 mg/dL (8.5-10.1); CARBON DIOXIDE 26.9 mmol/L (21-32); CREATININE SERUM 1.6 mg/dL (0.6-1.0); POTASSIUM SERUM 4.9 mmol/L (3.5-5.1)
[2020-04-16 15:13] LABS: ALBUMIN 3.8 g/dL (3.4-5.0); BILIRUBIN TOTAL 0.5 mg/dL (0.20-1.00); TOTAL PROTEIN, SERUM 8.5 g/dL (6.4-8.2)
[2020-04-16 16:33] VITALS: BP 139/45
== END 2020-04-16 16:33 | disposition home or self-care (01) ==
LOC: ED 13:53
PROVIDERS: Emergency Medicine
DX: K52.9 Noninfective gastroenteritis and colitis, unspecified (principal); I10 Essential (primary) hypertension; E11.9 Type 2 diabetes mellitus without complications; K21.9 Gastro-esophageal reflux disease without esophagitis; Z88.8 Allergy status to other drugs, medicaments and biological substances
CPT/HCPCS: J1885; J2405; J2765; J7030